=== PATIENT | female | born 1975 | race Caucasian/White ===

== ENCOUNTER → 2018-03-14 08:47 | Outpatient (CLI) | payer OTHER ==
--- NOTE | ~2018-03-14 | EC ---
PATIENT:EDER ROMERO DATE OF SERVICE: 03/14/18 SEX: F MEDICAL RECORD: [id number] DATE OF : 75 LOCATION:D.[facility] AGE OF PATIENT: 43 ADMISSION DATE: 03/14/18 REFERRING PHYSICIAN: INTERPRETING PHYSICIAN: JORI LOPES MD ECHOCARDIOGRAM REPORT ECHO CHARGES 4 ECHO COMPLETE Date: 03/14/18 CLINICAL DIAGNOSIS: VET EVAL/ HX OF AFIB WITH ABLASION ECHOCARDIOGRAPHIC MEASUREMENTS (adult normal given) AC root (d.<3.7cm) 3.3 cm LV Septum d (<1.2 cm> 1.4 cm Valve Excursion 1.8 cm LV Septum (systole) 1.6 cm Left Atria (s.<4.0cm> 3.4 cm LVPW d(<1.2cm) 1.3 cm RV (d.<2.3cm) 2.5 cm LVPW (sytole) 1.7 cm LV diastole(<5.6CM) 4.5 cm MV E-F(>70mm/sec) cm LV systole 3.2 cm LVOT Diameter 2.0 cm MV exc.(>10mm) 1.8 cm Est.ejection fraction (50-75%) % DOPPLER: LVIT cm/sec A 49.0 cm/sec E 76.0 cm/sec LA cm/sec RVSP 28 mmHg LVOT 88 cm/sec AOP1/2T m/s Asc. Ao 120 cm/sec RVOT 100 cm/sec RA cm/sec PA 106 cm/sec AV Gradient Peak 5.74 mmHg AV Mean 2.74 mmHg AV Area 2.6 cm MV Gradient Peak 4.16 mmHg MV Mean 1.19 mmHg MV Area cm COMMENTS: Tick Sewer: Imtiaz GREY Equipment Operation Instructor: Araseli Lopes TAPE# PACS Pericardial Effusion N DATE OF SERVICE: 03/14/2018 PROCEDURE: Echocardiogram. FINDINGS: 1. Left ventricular chamber size is within normal limits. Left ventricular systolic function is normal. Overall ejection fraction estimated at 60%. 2. Left atrium, right atrium, and right ventricle chamber sizes are within normal limits. 3. Valvular structures have normal structure and motion. ECHOCARDIOGRAM REPORT [id number] EDER ROMERO 4. Doppler interrogation reveals trace mitral regurgitation, trace to mild tricuspid regurgitation, no other valvular insufficiency or stenosis. Pulmonary systolic pressure is estimated 28 mmHg. 5. No evidence of pericardial effusion or left ventricular thrombus. TRANSINT:[id number] Voice Confirmation ID: [id number] DOCUMENT ID: [id number] JORI LOPES MD at 1108 CC: [id number] DICTATION DATE: 03/14/18 1608 HAND BUTTON SPLITTER: 03/15/18 0014 DEP CLI 03/14/18 [id number] [place] [address]
== END | disposition home or self-care (01) ==
LOC: D.ECHO 08:47
DX: I48.91 Unspecified atrial fibrillation (principal)